=== PATIENT | male | born 1950 | race Caucasian/White ===

== ENCOUNTER 2016-11-27 15:56 | Inpatient (IN) | payer MEDICARE ==
[2016-11-27] VITALS (7 sets, daily range): BP systolic 167–170; BP diastolic 76–77; PULSE 66–95; RESP 17–25; TEMP 98.4; O2SAT 97–100
[~2016-11-27] VITALS: Ht 177.8 cm; Wt 92.0 kg
[2016-11-27] MEDS ORDERED: PROPOFOL 500 MG/50 ML INJ 50 ML ONE (16:01)
[2016-11-27] MEDS ORDERED: LIDOCAINE 1%/EPINEPHrine 1:100,000 SOLN 20 ML VIAL ONE (16:06)
[2016-11-27 16:31] LABS: I-STAT POTASSIUM 7.2 MMOL/L (3.5-4.9)
[2016-11-27] MEDS ORDERED: IOHEXOL 350 MG/ML 10 ML VIAL (for RAD DIAG) IV ONE (16:31)
--- NOTE | 2016-11-27 16:34 | RADRPT ---
EXAM DATE/TIME: 11/27/2016 15:52 [facility] COMPARISON: CHEST SINGLE AP, November 27, 2016, 15:52. INDICATIONS : Trauma Alert, Fall. MEDICAL HISTORY : None. SURGICAL HISTORY : None. ENCOUNTER: Initial ACUITY: 1 day PAIN SCORE: Non-responsive. LOCATION: Bilateral chest FINDINGS: Multiple displaced rib fractures are present on the left with a small pneumothorax. Subcutaneous emph ysema is seen. Mild left lung base atelectasis and/or infiltrate is seen. Heart and mediastinum are u nremarkable for technique. CONCLUSION: Small left pneumothorax and numerous displaced rib fractures. Jessa Mc MD on November 27, 2016 at 16:30 Board Certified Radiologist. This report was verified electronically.
--- NOTE | 2016-11-27 16:35 | RADRPT ---
EXAM DATE/TIME: 11/27/2016 15:52 [facility] COMPARISON: CHEST SINGLE AP, November 27, 2016, 15:52. INDICATIONS : Trauma Alert, Post chest tube placement. MEDICAL HISTORY : None. SURGICAL HISTORY : None. ENCOUNTER: Subsequent ACUITY: 1 day PAIN SCORE: Non-responsive. LOCATION: Bilateral chest FINDINGS: Chest tube is present on the left side. No definite pneumothorax is seen for technique. There is no c hange in multiple rib fractures and subcutaous emphysema on the left. Mild left lung base atelectasis and/or infiltrate is seen. CONCLUSION: Placement of chest tube and no pneumothorax. Jessa Mc MD on November 27, 2016 at 16:33 Board Certified Radiologist. This report was verified electronically.
--- NOTE | 2016-11-27 16:35 | RADRPT ---
EXAM DATE/TIME: 11/27/2016 15:52 [facility] COMPARISON: No previous studies available for comparison. INDICATIONS : Trauma Alert, Fall. MEDICAL HISTORY : None. SURGICAL HISTORY : None. ENCOUNTER: Initial ACUITY: 1 day PAIN SCORE: Non-responsive. LOCATION: Bilateral Pelvis FINDINGS: No definite fractures, or dislocations are identified. No definite lytic or sclerotic lesion is seen . CONCLUSION: Unremarkable study. Jessa Mc MD on November 27, 2016 at 16:32 Board Certified Radiologist. This report was verified electronically.
[2016-11-27 16:41] LABS: APTT (PATIENT) 22.5 SEC (24.3-30.1); PROTHROMBIN TIME - PATIENT 10.9 SEC (9.8-11.6)
--- NOTE | 2016-11-27 16:49 | RADRPT ---
EXAM DATE/TIME: 11/27/2016 16:24 [facility] COMPARISON: No previous studies available for comparison. INDICATIONS : Trauma. Fall. RADIATION DOSE: 58.01 CTDIvol (mGy) MEDICAL HISTORY : Non-responsive. SURGICAL HISTORY : Non-responsive. ENCOUNTER: Initial ACUITY: 1 day PAIN SCALE: Non-responsive LOCATION: cranial TECHNIQUE: Multiple contiguous axial images were obtained of the head. Using automated exposure control and adj ustment of the mA and/or kV according to patient size, radiation dose was kept as low as reasonably a chievable to obtain optimal diagnostic quality images. FINDINGS: There is no evidence for intracranial hemorrhage, mass effect, mass lesions, edema, or extra-axial fl uid collections. The visualized bony structures appear intact. The ventricles are normal size for t he patient's age. There are no signs of acute infarction for technique. CONCLUSION: Unremarkable study. Jessa Mc MD on November 27, 2016 at 16:46 Board Certified Radiologist. This report was verified electronically.
--- NOTE | 2016-11-27 16:54 | RADRPT ---
EXAM DATE/TIME: 11/27/2016 16:31 [facility] COMPARISON: No previous studies available for comparison. INDICATIONS : Trauma. Fall. IV CONTRAST: 95 cc Omnipaque 350 (iohexol) IV ; Cumulative dose for multiple exams. ORAL CONTRAST: No oral contrast ingested. RADIATION DOSE: 19.83 CTDIvol (mGy) ; Combined studies - Thorax/Abdomen/Pelvis MEDICAL HISTORY : Non-responsive. SURGICAL HISTORY : Non-responsive. ENCOUNTER: Initial ACUITY: 1 day PAIN SCALE: Non-responsive LOCATION: abdomen TECHNIQUE: Volumetric scanning of the abdomen and pelvis was performed. Using automated exposure control and ad justment of the mA and/or kV according to patient size, radiation dose was kept as low as reasonably achievable to obtain optimal diagnostic quality images. FINDINGS: CT Abdomen: There are findings in the visualized lower chest discussed on the patient's chest CT.The liver, spleen, pancreas, kidneys, adrenals are unremarkable. There is no evidence for any appreciable pathological adenopathy, free fluid, or bowel obstruction. Chronic vascular calcifications are pres ent involving the aorta, iliac arteries without any significant stenosis or aneurysmal dilatations fo r technique. CT pelvis: There is no evidence for mass, abscess formation, or any significant adenopathy within the pelvis. The prostate gland is inhomogeneous and measures 4.0 x 5.0 cm in AP and transverse diameters and nonspecific. Approximate 1.5 cm bone and is present in the left iliac bone with a smaller one in the right sacrum. There are scattered diverticuli mainly in the sigmoid colon without definite signs of diverticulitis. CONCLUSION: Scattered diverticuli and findings in the lower chest otherwise unremarkable. Jessa Mc MD on November 27, 2016 at 16:48 Board Certified Radiologist. This report was verified electronically.
[2016-11-27 16:57] LABS: AUTOMATED NEUTROPHIL # 6.8 TH/MM3 (1.8-7.7); BASOPHIL % 0.4 % (0.0-2.0); EOSINOPHIL # 0.2 TH/MM3 (0-0.4); EOSINOPHIL % 2.3 % (0.0-4.0); HEMATOCRIT 39.5 % (39.0-51.0); HEMO FLAGS DIFF FINAL; LYMPH % 25.1 % (9.0-44.0); LYMPHOCYTE # 2.6 TH/MM3 (1.0-4.8); MEAN CORPUSCULAR HEMOGLOBIN 30.8 PG (27.0-34.0); MEAN CORPUSCULAR HGB CONC 33.1 % (32.0-36.0); MONO % 5.6 % (0.0-8.0); NEUT % 66.6 % (16.0-70.0); PLATELET COUNT 289 TH/MM3 (150-450); RED BLOOD COUNT 4.25 MIL/MM3 (4.50-5.90); RED CELL DISTRIBUTION WIDTH 13.6 % (11.6-17.2); WHITE BLOOD COUNT 10.2 TH/MM3 (4.0-11.0)
--- NOTE | 2016-11-27 17:07 | PD ---
HPI Chief Complaint: Trauma (Alert) Time Seen by Provider: 16:00 Travel History International Travel<30 days: No Contact w/Intl Traveler<30days: No History of Present Illness HPI 61-year-old male here as a trauma alert. Patient reportedly fell down a staircase. Questionable LOC. EMS noticed decreased breath sounds on the left side prompting trauma alert activation. Vital signs including O2 sat stable in route. Patient points of only pain to the left side of the chest. He denies any significant headache, neck back pain, abdominal pain or extremity injury. Left-sided neck pain as severe, worse with movement or inspiration. [facility] Past Medical History Medical History: Unable to Obtain Past Surgical History Surgical History: Unable to Obtain Allergies-Medications (Allergen,Severity, Reaction): Coded Allergies: Keflex (Verified Allergy, Unknown, 11/27/16) Penicillin (Verified Allergy, Unknown, 11/27/16) Review of Systems ROS Limitations: Clinical Condition Except as stated in HPI: all other systems reviewed are Neg Physical Exam Exam Limitations: Clinical Condition Narrative PRIMARY SURVEY Airway: Intact Breathing: Bilateral breath sounds are equal Circulation: Blood pressure stable. Distal pulses intact Disability: GCS 15 Exposure: No obvious injuries SECONDARY SURVEY General: Well-appearing male in no acute distress Head: Atraumatic Eyes: Pupils equal round and reactive to light 3 mm ENT: Face is stable to palpation, no hemotympanum Neck: In cervical collar Cardiovascular: Regular rate and rhythm. Distal pulses intact. Respiratory: Clear to auscultation bilaterally. Chest: Crepitus and subcutaneous emphysema to the left side of the chest wall Abdomen: Soft, nontender, nondistended. Pelvis: Pelvis is stable to AP and lateral compression Back: No tenderness to palpation of the midline spine. No step-offs or crepitus. Extremities: No obvious deformity of the extremities. Distal sensation, pulses intact. Genitourinary: Normal external genitalia. No blood at the urethral meatus. Data Data Last Documented VS Vital Signs Date Time Temp Pulse Resp B/P Pulse Ox O2 Delivery O2 Flow Rate FiO2 11/27/16 16:13 97 15.00 100 Orders Ed Poc Ultrasound (11/27/16 ) Propofol 500 Mg/50 Ml Inj (Diprivan 500 (11/27/16 16:01) Lidocai-Epi 1%-1:100,000 Inj (Xylocaine- (11/27/16 16:06) Fentanyl Inj (Fentanyl Inj) (11/27/16 16:11) I-Stat Profile (11/27/16 16:10) I-Stat Creatinine (11/27/16 16:10) Complete Blood Count With Diff (11/27/16 16:10) Prothrombin Time / Inr (Pt) (11/27/16 16:10) Act Partial Throm Time (Ptt) (11/27/16 16:10) Type And Screen (11/27/16 16:10) Chest, Single Ap (11/27/16 16:10) Pelvis, Ap Only (Routine) (11/27/16 16:10) Ct Brain W/O Iv Contrast(Rout) (11/27/16 16:10) Ct Cerv Spine W/O Contrast (11/27/16 16:10) Ct Abd/Pel W Iv Contrast(Rout) (11/27/16 16:10) Ct Thorax/ Chest W Iv Contrast (11/27/16 16:10) Iv Access Insert/Monitor (11/27/16 16:10) Ecg Monitoring (11/27/16 16:10) Oximetry (11/27/16 16:10) Oxygen Administration (11/27/16 16:10) Remove Backboard (11/27/16 16:10) Chest, Single Ap (11/27/16 ) Admit Order (Ed Use Only) (11/27/16 16:19) Labs Laboratory Tests Test 11/27/16 16:13 White Blood Count 10.2 TH/MM3 Red Blood Count 4.25 MIL/MM3 Hemoglobin 13.1 GM/DL Bedside Hemoglobin 13.3 G/DL Hematocrit 39.5 % Bedside Hematocrit 39.0 % Mean Corpuscular Volume 93.0 FL Mean Corpuscular Hemoglobin 30.8 PG Mean Corpuscular Hemoglobin 33.1 % Concent Red Cell Distribution Width 13.6 % Platelet Count 289 TH/MM3 Mean Platelet Volume 11.2 FL Neutrophils (%) (Auto) 66.6 % Lymphocytes (%) (Auto) 25.1 % Monocytes (%) (Auto) 5.6 % Eosinophils (%) (Auto) 2.3 % Basophils (%) (Auto) 0.4 % Neutrophils # (Auto) 6.8 TH/MM3 Lymphocytes # (Auto) 2.6 TH/MM3 Monocytes # (Auto) 0.6 TH/MM3 Eosinophils # (Auto) 0.2 TH/MM3 Basophils # (Auto) 0.0 TH/MM3 CBC Comment DIFF FINAL Differential Comment Prothrombin Time 10.9 SEC Prothromb Time International 1.0 RATIO Ratio Activated Partial 22.5 SEC Thromboplast Time Bedside Sodium 139 MMOL/L Bedside Potassium 7.2 MMOL/L Bedside Chloride 108 MMOL/L Bedside Blood Urea Nitrogen 59 MG/DL Bedside Creatinine 1.3 MG/DL Bedside Glucose 174 MG/DL Blood Type A POSITIVE Antibody Screen NEGATIVE MDM Medical Screen Exam Complete: Yes Emergency Medical Condition: Yes Medical Record Reviewed: Yes Differential Diagnosis 61-year-old male status post fall from staircase with left-sided chest pain and subcutaneous emphysema on exam. Differential includes closed head injury, skull fracture, ICH, cervical/thoracic/lumbar spine fracture, hemothorax, pneumothorax, rib fracture, solid or visceral organ injury. Narrative Course By myself upon emergency department arrival. Primary survey notable for subcutaneous emphysema and crepitus on the left chest. X-rays of the chest, pelvis and fast ultrasound were performed confirming left-sided pneumothorax with subcutaneous emphysema. Procedural sedation performed and chest tube placed, please see procedure notes. Secondary survey unremarkable. Patient expedited to CT. Laboratory workup notable for potassium 7.2 that I think is likely erroneous. We'll recheck this. Head CT is negative. Chest CT showed left-sided clavicle, multiple rib fractures and either infiltrates or early pulmonary contusions. CT of the cervical spine remains pending at the time this dictation. Patient admitted to trauma surgery for further management. Critical Care Narrative Aggregate critical care time was 35 minutes. Time to perform other separately billable procedures was not included in the critical care time. My time did not include minutes spent treating any other patients simultaneously or on activities that did not directly contribute to the patient's treatment. The services I provided to this patient were to treat and/or prevent clinically significant deterioration that could result in: Cardiopulmonary decompensation, , disability I provided critical care services requiring my management, as noted below: Chart data review, documentation time, medication orders and management, vital sign assessments/reviewing monitor data, ordering and reviewing lab tests, ordering and interpreting/reviewing x-rays and diagnostic studies, care of the patient and discussion of the patient with the admitting physicians. Procedures Procedure Narrative After the risks and benefits were discussed the following procedure was performed: MODERATE SEDATION: The patient was placed on a site monitor and pulse oximetry. An ambu bag and suction was immediately available at bedside. The patient was monitored by the nurse. Oxygen saturation, heart rate, capnography and blood pressure were monitored. Procedural sedation was acheived using 100 g fentanyl, 100 mg propofol. The patient was observed until awake and alert. Procedural Sedation time in attendance was 25 minutes. Emergency department E-FAST was performed with patient consent. The curvilinear probe was used in the right upper quadrant/Morison's pouch, suprapubic, left upper quadrant/spleenorenal space, epigastric, parasternal long axis and anterior bilateral chest wall. There was no evidence of peritoneal free fluid, pericardial effusion. No sliding lung sign on the left consistent with pneumothorax. Right side is normal. Trauma Alert - Level One Trauma Alert Level One: Full trauma team activate Time Surgeon Summoned: 15:29 (Surgeon asked to come in) Diagnosis Diagnosis: Primary Impression: Pneumothorax, left Additional Impressions: Closed left clavicular fracture Rib fractures Qualified Code: S22.42XA - Closed fracture of multiple ribs of left side, initial encounter Fall Qualified Code: W19.XXXA - Fall, initial encounter Admitting Physician Requests: Admit Varsha Hicks MD Nov 27, 2016 17:07
--- NOTE | 2016-11-27 17:09 | RADRPT ---
EXAM DATE/TIME: 11/27/2016 16:31 [facility] COMPARISON: No previous studies available for comparison. INDICATIONS : Trauma. Fall. IV CONTRAST: 95 cc Omnipaque 350 (iohexol) IV ; Cumulative dose for multiple exams. RADIATION DOSE: 19.83 CTDIvol (mGy) MEDICAL HISTORY : Non-responsive. SURGICAL HISTORY : Non-responsive. ENCOUNTER: Initial ACUITY: 1 day PAIN SCALE: Non-responsive LOCATION: chest TECHNIQUE: Volumetric scanning of the chest was performed. Using automated exposure control and adjustment of t he mA and/or kV according to patient size, radiation dose was kept as low as reasonably achievable to obtain optimal diagnostic quality images. FINDINGS: There is a displaced left clavicular fracture and numerous displaced rib fractures. Subcutaous e mphysema is seen on the left to a significant degree with a small pneumothorax. Chest tube is present on the left side. Bibasilar infiltrates and or contusion is seen worse on the left. The mediastinum appears intact. CONCLUSION: Left pneumothorax and multiple fractures and bibasilar contusions and/or infiltrates. Jessa Mc MD on November 27, 2016 at 17:03 Board Certified Radiologist. This report was verified electronically.
--- NOTE | 2016-11-27 17:14 | RADRPT ---
EXAM DATE/TIME: 11/27/2016 16:24 [facility] COMPARISON: No previous studies available for comparison. INDICATIONS : Trauma. Fall. RADIATION DOSE: 21.52 CTDIvol (mGy) MEDICAL HISTORY : Non-responsive. SURGICAL HISTORY : Non-responsive. ENCOUNTER: Initial ACUITY: 1 day PAIN SCALE: Non-responsive LOCATION: neck TECHNIQUE: Volumetric scanning of the cervical spine was performed. Multiplanar reconstructions in the sagittal, coronal and oblique axial planes were performed. Using automated exposure control and adjustment o f the mA and/or kV according to patient size, radiation dose was kept as low as reasonably achievable to obtain optimal diagnostic quality images. FINDINGS: No evidence of subluxation. Extensive subcutaneous emphysema is seen. No definite fracture of ce rvical spine is seen for technique. C2-C3: There is no evidence for any significant compromise to the thecal sac, or the exiting nerve roots. N o appreciable thecal sac stenosis is seen. The neural foramina and lateral recess appear patent bila terally. C3-C4: Slight degenerative changes are seen within the disc space and facets. There is slight neural foramin a compromise on the right due to asymmetrical bulging disc and hypertrophic changes. Slight bulging d isc and hypertrophic changes are seen with indentation on the thecal sac and no significant compromis e to the thecal sac. C4-C5: There is no evidence for any significant compromise to the thecal sac, or the exiting nerve roots. N o appreciable thecal sac stenosis is seen. The neural foramina and lateral recess appear patent bila terally. C5-C6: Moderate degenerative changes are seen within the disc space and facets. There is bulging disc and hy pertrophic change protruding into bilateral lateral recess without any significant compromise to the exiting nerve roots. There is slight neural foramina compromise on the right due to asymmetrical bulg ing disc and hypertrophic changes. Slight bulging disc and hypertrophic changes are seen with indenta tion on the thecal sac and no significant compromise to the thecal sac. C6-C7: Moderate degenerative changes are seen within the disc space and facets. There is bulging disc and hy pertrophic change protruding into bilateral lateral recess without any significant compromise to the exiting nerve roots. There is slight neural foramina compromise on the right due to asymmetrical bulg ing disc and hypertrophic changes. Slight bulging disc and hypertrophic changes are seen with indenta tion on the thecal sac and no significant compromise to the thecal sac. C7-T1: There is no evidence for any significant compromise to the thecal sac, or the exiting nerve roots. N o appreciable thecal sac stenosis is seen. The neural foramina and lateral recess appear patent bila terally. CONCLUSION: Subcutaneous emphysema, degenerative spondylosis with slight neural foramina compromise right C3-C4, right C5-6 and right C6-7. Jessa Mc MD on November 27, 2016 at 17:07 Board Certified Radiologist. This report was verified electronically.
[2016-11-27] MEDS ORDERED: SODIUM CHLORIDE 0.9% FLUSH 10 ML FLUSH IV FLUSH PRN (17:15)
[2016-11-27] MEDS ORDERED: CHLORHEXIDINE GLUCONATE 2 % 1 PACK (2 CLOTHS) TOP PRN (17:15)
[2016-11-27] MEDS ORDERED: PCA - TOTAL MG MORPHINE DELIVERED PER SHIFT SCH (17:15)
[2016-11-27] MEDS ORDERED: ACETAMINOPHEN/HYDROcodone 325 MG/5 MG TAB PO PRN (17:15)
[2016-11-27] MEDS ORDERED: NALOXONE HCL 0.4 MG/ML AMP IV PRN ×2 (17:15→18:15)
[2016-11-27] MEDS ORDERED: ONDANSETRON HCL 4 MG/2 ML VIAL IV PRN (17:15)
[2016-11-27] MEDS ORDERED: MISCELLANEOUS NURSING INFORMATION XX SCH (17:15)
[2016-11-27] MEDS ORDERED: MORPHINE SULFATE 30 MG/30 ML PCA IV SCH (17:15)
--- NOTE | 2016-11-27 17:59 | HHI.CCPN ---
Subjective Brief History 61-year-old male fell a flight of stairs and sustained injuries to the left chest Patient is transferred to our institution as per 21 trauma alert and comes complaining about pain in the left chest and left shoulder as well as shortness of breath Patient was worked up according to trauma principles underwent the appropriate studies and is diagnosed with Left clavicle fracture with moderate displacement Left serial rib fractures I'm counting III to IX Hemopneumothorax and pulmonary contusion Patient is placed in the ICU for further care Past medical and surgical history is unknown Medications are unknown Allergies are not known 24 Hour Review/Hospital Course Physical examination reveals a gentleman mother distressed of the left chest pain Bilateral breath sounds much improved since the arrival patient has crepitus over the left chest consistent with the subcutaneous emphysema resulting from the initial hemopneumothorax Minimal drainage from the chest tube after about 200 cc of blood came out initially Very small air leak on Valsalva and deep inspiration Patient will be placed in the ICU for observation and further acute care Objective Vital Signs Date Time Temp Pulse Resp B/P Pulse Ox O2 Delivery O2 Flow Rate FiO2 11/27/16 17:45 93 17 167/76 98 Nasal Cannula 2 11/27/16 16:13 100 Result Diagram: 11/27/16 1613 Imaging Last 24 hours Impressions Pelvis X-Ray 11/27/161609 Signed Impressions: Service Date/Time: Sunday, November 27, 2016 15:52 - CONCLUSION: Unremarkable study. Jessa Mc MD Head CT 11/27/161609 Signed Impressions: Service Date/Time: Sunday, November 27, 2016 16:24 - CONCLUSION: Unremarkable study. Jessa Mc MD Chest X-Ray 11/27/161609 Signed Impressions: Service Date/Time: Sunday, November 27, 2016 15:52 - CONCLUSION: Small left pneumothorax and numerous displaced rib fractures. Jessa Mc MD Chest CT 11/27/161609 Signed Impressions: Service Date/Time: Sunday, November 27, 2016 16:31 - CONCLUSION: Left pneumothorax and multiple fractures and bibasilar contusions and/or infiltrates. Jessa Mc MD Cervical Spine CT 11/27/161609 Signed Impressions: Service Date/Time: Sunday, November 27, 2016 16:24 - CONCLUSION: Subcutaneous emphysema, degenerative spondylosis with slight neural foramina compromise right C3-C4, right C5-6 and right C6-7. Jessa Mc MD Abdomen/Pelvis CT 11/27/16 1610 Signed Impressions: Service Date/Time: Sunday, November 27, 2016 16:31 - CONCLUSION: Scattered diverticuli and findings in the lower chest otherwise unremarkable. Jessa Mc MD Chest X-Ray 11/27/16 0000 Signed Impressions: Service Date/Time: Sunday, November 27, 2016 15:52 - CONCLUSION: Placement of chest tube and no pneumothorax. Jessa Mc MD Exam [employer] Awake alert oriented Jose Antonio Coma Scale 15 Hemodynamic/Cardiac Hemodynamically stable sinus rhythm maintain his blood pressure Pulmonary/Respiratory Bilateral good breath sounds decreased over the left side with some splinting chest tube in position Abdomen/GI Nutrition Abdomen soft no signs of trauma to the abdomen Renal/I&O Good urine output Assessment and Plan Attestation The exam, history, and the medical decision-making described in the above note were completed with the assistance of the mid-level provider. I reviewed and agree with the findings presented. I attest that I had a [id number] encounter with the patient on the same day, and personally performed and documented my assessment and findings in the medical record. Critical care time 42 minutes. Lindsey Victor MD Nov 27, 2016 17:59
[2016-11-27] MEDS ORDERED: PANTOPRAZOLE SODIUM 40 MG VIAL IVP SCH (18:00)
[2016-11-27] MEDS: MORPHINE SULFATE 4 MG/ML INJ IV PRN (19:36)
[2016-11-27] MEDS: SODIUM CHLOR 0.9% 1000 ML INJ 1,000 ML IV SCH (20:11)
[2016-11-27] MEDS: MORPHINE SULFATE 30 MG/30 ML PCA IV SCH (20:43)
[2016-11-27] MEDS ORDERED: DOCUSATE SODIUM 100 MG CAP PO SCH (21:00)
[2016-11-27] MEDS ORDERED: DOCUSATE SODIUM 100 MG/10 ML UDC PO SCH (21:00)
[2016-11-27] MEDS: BACITRACIN TOP OINT 15 GM TUBE TOP SCH (21:00)
[2016-11-27] MEDS: ACETAMINOPHEN/HYDROcodone 325 MG/5 MG TAB PO PRN (21:26)
[2016-11-27] MEDS: PCA - TOTAL MG MORPHINE DELIVERED PER SHIFT SCH (22:00)
--- NOTE | 2016-11-27 22:38 | MH ---
cc: MADELEINE GARCIA MD DATE OF ADMISSION 11/27/2016 CHIEF COMPLAINT Trauma alert, status post fall. HISTORY OF PRESENT ILLNESS The patient is a 66-year-old male who presented as a trauma alert status post fall from 8-10 feet. The patient had questionable loss of consciousness noticed to have decreased breath sounds by Emergency Medical Service prompting a trauma alert activation. The patient was hemodynamically stable en route and came to the trauma bay with a GCS of 15, complaining of left-sided chest pain and noted to have crepitus and some headache and back pain. The patient was assessed with decreased breath sounds on the left. Chest x-ray obtained showing significant subcutaneous air with multiple rib fractures and a pneumothorax. Therefore, decision was made for a chest tube. This was done by myself emergently at bedside under sedation. The patient was then taken to the CT scanner for further evaluation with findings of a left clavicle fracture and multiple five left rib fractures. He also had lung contusions. He was, therefore, transported to [facility] for ICU and ISC consultation and further management, pain control and treatment. PAST MEDICAL HISTORY Unable to obtain. PAST SURGICAL HISTORY Unable to obtain. ALLERGIES KEFLEX PENICILLIN MEDICATIONS See EMR. SOCIAL HISTORY Difficult to obtain. FAMILY HISTORY Unable to obtain. REVIEW OF SYSTEMS GENERAL: The patient in mild distress. HEENT: Denies eye pain. Complains of headache. NECK: Denies swelling or pain. LUNGS: Complained of left-sided pain. Denies cough or wheeze. HEART: Denies palpitations, chest pain. ABDOMEN: Denies abdominal pain. EXTREMITIES: Denies myalgias, arthralgias. : Denies dysuria, hematuria. ENDOCRINE: Denies polyuria, polydipsia. PHYSICAL EXAMINATION GENERAL: The patient in minimal distress. VITAL SIGNS: Temperature 98.1, pulse 95, respirations 18, blood pressure 167/76, saturation 99%. HEENT: Pupils equal, round, reactive to light and accommodation NECK: C-collar in place. Trachea midline. LUNGS: Decreased breath sounds on left, crepitus, bilateral expansion. HEART: S1-S2 regular. ABDOMEN: Soft, nontender, nondistended. EXTREMITIES: Moving all extremities except weakness on left upper extremity. CLAVICLES: Tenderness to palpation of left clavicle. SKIN: Minimal abrasions noted. PSYCHIATRIC: Good insight, good judgment. LABORATORY AND DIAGNOSTIC DATA WBC 10.2, hemoglobin 13.1, hematocrit 39.5, platelets 289. Sodium 139, potassium 7.2, chloride 108, BUN 59, creatinine 1.3, glucose 174, INR one. RADIOLOGY Reviewed by myself. CT head - no evidence of acute pathology. CT C-spine subcutaneous emphysema, degenerative disease. No acute fracture. CT abdomen and pelvis - scattered diverticula otherwise no free air. No hollow or solid organ injury. CT chest - Left pneumothorax, multiple rib fractures five in total. Infiltrates with basilar contusions. Chest x-ray - rib fractures, pneumothorax. Pelvic x-ray no fracture. ASSESSMENT The patient is a 58-year-old male status post fall from 8-10 feet, multiple left-sided rib fractures, pneumothorax status post chest tube placement. PLAN After full clinical radiologic laboratory workup, the patient with above-named issues including pulmonary contusion, multiple rib fractures. The patient will be admitted to the ICU. ISC consultation. We will watch and monitor the patient's respiratory status closely and give the patient adequate pain control, pulmonary toilet and muscle relaxer. The patient's chest tube will stay to negative 20 suction. We will check a chest x-ray in the morning. For clavicle fracture on the left, we will consult orthopedics for further management and evaluation and possible operative intervention. We will continue the patient IV fluids, n.p.o. pain control and again watch for ongoing evolution of other issues. This was discussed with the patient and family in detail. MD CHELSEY Riojas/ /9:38 PM /10:19 PM
[2016-11-28] VITALS (9 sets, daily range): BP systolic 108–144; BP diastolic 57–70; PULSE 58–66; RESP 16–22; TEMP 96.9–98.3; O2SAT 95–100
[2016-11-28] MEDS: CHLORHEXIDINE GLUCONATE 2 % 1 PACK (2 CLOTHS) TOP SCH (02:46)
[2016-11-28] MEDS: ACETAMINOPHEN/HYDROcodone 325 MG/5 MG TAB PO PRN (02:46)
[2016-11-28] MEDS: SODIUM CHLOR 0.9% 1000 ML INJ 1,000 ML IV SCH (02:47)
[2016-11-28 04:27] LABS: AUTOMATED NEUTROPHIL # 4.2 TH/MM3 (1.8-7.7); BASOPHIL % 0.3 % (0.0-2.0); EOSINOPHIL # 0.2 TH/MM3 (0-0.4); EOSINOPHIL % 2.8 % (0.0-4.0); HEMATOCRIT 37.8 % (39.0-51.0); HEMO FLAGS DIFF FINAL; LYMPH % 28.9 % (9.0-44.0); LYMPHOCYTE # 2.1 TH/MM3 (1.0-4.8); MEAN CELL VOLUME 94.5 FL (80.0-100.0); MEAN CORPUSCULAR HGB CONC 32.8 % (32.0-36.0); MONO % 11.7 % (0.0-8.0); NEUT % 56.3 % (16.0-70.0); PLATELET COUNT 176 TH/MM3 (150-450); RED CELL DISTRIBUTION WIDTH 13.7 % (11.6-17.2); WHITE BLOOD COUNT 7.4 TH/MM3 (4.0-11.0)
[2016-11-28 04:58] LABS: BICARBONATE 24.3 MEQ/L (21.0-32.0); POTASSIUM 4.3 MEQ/L (3.5-5.1)
[2016-11-28] MEDS: PCA - TOTAL MG MORPHINE DELIVERED PER SHIFT SCH ×3 (06:00→22:00)
--- NOTE | 2016-11-28 06:50 | RADRPT ---
EXAM DATE/TIME: 11/28/2016 04:42 [facility] COMPARISON: CHEST SINGLE AP, November 27, 2016, 15:52. INDICATIONS : Shortness of breath. MEDICAL HISTORY : Unobtainable. SURGICAL HISTORY : Unobtainable. ENCOUNTER: Subsequent ACUITY: 2 days PAIN SCORE: Non-responsive. LOCATION: Bilateral chest FINDINGS: A single portable frontal view of the chest shows a left thoracostomy tube. Multiple left-sided rib f ractures. No pneumothorax. Small amount of subcutaneous air overlying the left chest and left neck. L eft basilar atelectasis. Right lung is clear. Heart is normal in size. Scoliotic curvature. CONCLUSION: 1. Left thoracostomy tube without pneumothorax. 2. Left-sided rib fractures. 3. Left basilar atelectasis. Chandrakant Villa Jr., MD on November 28, 2016 at 6:48 Board Certified Radiologist. This report was verified electronically.
[2016-11-28] MEDS: MORPHINE SULFATE 30 MG/30 ML PCA IV SCH (07:44)
[2016-11-28] MEDS: METHOCARBAMOL 500 MG TAB PO SCH ×3 (07:55→23:01)
[2016-11-28] MEDS ORDERED: RESP: ALBUTEROL 2.5 MG/IPRATROPIUM 0.5 MG NEB (PRN) NEB (08:00)
[2016-11-28] MEDS: FAMOTIDINE 20 MG TAB PO SCH ×2 (08:16→23:01)
[2016-11-28] MEDS: DOCUSATE SODIUM 50 MG/SENNA 8.6 MG TAB PO SCH ×2 (08:17→23:01)
[2016-11-28] MEDS: POLYETHYLENE GLYCOL 17 GM PKG PO SCH (08:17)
[2016-11-28] MEDS: BACITRACIN TOP OINT 15 GM TUBE TOP SCH (08:18)
[2016-11-28] MEDS: KETOROLAC TROMETHAMINE 30 MG/ML (IVP) VIAL IV PUSH SCH ×3 (13:01→23:01)
[2016-11-28] MEDS: ACETAMINOPHEN 1000 MG/100 ML VIAL IV SCH ×2 (13:01→17:56)
--- NOTE | 2016-11-28 13:28 | PD.CONS ---
HPI Service Orthopedic Surgeons Consult Requested By Primary Care Physician Aristeo Low MD Admission Diagnosis L ptx, fall Diagnoses: Chief Complaint: full consult dictated Past Family Social History Allergies: Coded Allergies: Keflex (Verified Allergy, Unknown, 11/27/16) Penicillin (Verified Allergy, Unknown, 11/27/16) Active Ordered Medications Current Medications Medications (Trade) Dose Ordered Sig/Karis Route Start Time Stop Time Status Last Admin (NS Flush) 2 ml UNSCH PRN IV FLUSH 11/27/16 17:15 ([place] 5-325 Mg) 1 tab Q4H PRN PO 11/27/16 17:15 11/28/16 02:46 (Zofran Inj) 4 mg Q6H PRN IV 11/27/16 17:15 11/28/16 11:36 (Baciguent Oint) 1 applic BID TOP 11/27/16 21:00 Miscellaneous Information 1 Q361D XX 11/27/16 17:15 11/27/16 20:11 (Chlorhexidine 2% Cloth) 3 pack Taper DAILY@04 TOP 11/28/16 04:00 11/24/17 03:59 11/28/16 02:46 (Chlorhexidine 2% Cloth) 3 pack UNSCH PRN TOP 11/27/16 17:15 (Narcan Inj) 0.4 mg UNSCH PRN IV 11/27/16 18:15 (Morphine 1 Mg/ ml SPECTROGRAPHIC ANALYST) 30 mg UNSCH IV 11/27/16 18:15 11/28/16 07:44 SPECTROGRAPHIC ANALYST Dosage Infused (Pha) 1 Q8HR .XX 11/27/16 22:00 11/28/16 06:00 (Morphine Inj) 4 mg Q1H PRN IV 11/27/16 19:15 11/27/16 19:36 (Robaxin) 500 mg Q8HR PO 11/28/16 08:00 11/28/16 07:55 (Анна-Colace) 1 tab BID PO 11/28/16 09:00 11/28/16 08:17 (Miralax) 17 gm DAILY PO 11/28/16 09:00 11/28/16 08:17 (Pepcid) 20 mg BID PO 11/28/16 09:00 11/28/16 08:16 (Toradol Inj) 15 mg Q6HR IV PUSH 11/28/16 12:00 12/01/16 11:59 11/28/16 13:01 (Ofirmev Inj) 1,000 mg Q6H IV 11/28/16 13:00 11/29/16 12:59 11/28/16 13:01 Reported Meds & Active Scripts Active No Active Prescriptions or Reported Medications Physical Exam Vital Signs Vital Signs Date Time Temp Pulse Resp B/P Pulse Ox O2 Delivery O2 Flow Rate FiO2 11/28/16 11:51 99 Nasal Cannula 1.00 11/28/16 08:00 98.3 65 17 137/68 98 11/28/16 08:00 65 11/28/16 07:49 22 11/28/16 07:44 22 11/28/16 07:00 99 Nasal Cannula 2.00 11/28/16 06:00 20 11/28/16 06:00 60 11/28/16 06:00 20 11/28/16 04:00 98.3 58 20 133/66 100 11/28/16 04:00 58 11/28/16 00:00 64 11/28/16 00:00 98.2 64 20 144/70 100 11/27/16 22:00 66 11/27/16 22:00 22 11/27/16 21:00 25 11/27/16 20:47 100 Nasal Cannula 2.00 11/27/16 20:43 22 11/27/16 20:00 74 11/27/16 20:00 98.4 74 25 170/77 100 11/27/16 19:00 100 Nasal Cannula 2.00 11/27/16 17:45 93 17 167/76 98 Nasal Cannula 2 11/27/16 17:43 98 Nasal Cannula 2 11/27/16 17:40 95 18 167/76 98 11/27/16 16:13 97 15.00 100 Laboratory Laboratory Tests Test 11/27/16 11/27/16 11/27/16 11/28/16 16:13 17:10 18:46 03:31 White Blood Count 10.2 7.4 Red Blood Count 4.25 4.00 Hemoglobin 13.1 12.4 Bedside Hemoglobin 13.3 Hematocrit 39.5 37.8 Bedside Hematocrit 39.0 Mean Corpuscular Volume 93.0 94.5 Mean Corpuscular Hemoglobin 30.8 31.0 Mean Corpuscular Hemoglobin 33.1 32.8 Concent Red Cell Distribution Width 13.6 13.7 Platelet Count 289 176 Mean Platelet Volume 11.2 10.2 Neutrophils (%) (Auto) 66.6 56.3 Lymphocytes (%) (Auto) 25.1 28.9 Monocytes (%) (Auto) 5.6 11.7 Eosinophils (%) (Auto) 2.3 2.8 Basophils (%) (Auto) 0.4 0.3 Neutrophils # (Auto) 6.8 4.2 Lymphocytes # (Auto) 2.6 2.1 Monocytes # (Auto) 0.6 0.9 Eosinophils # (Auto) 0.2 0.2 Basophils # (Auto) 0.0 0.0 CBC Comment DIFF FINAL DIFF FINAL Differential Comment Prothrombin Time 10.9 Prothromb Time International 1.0 Ratio Activated Partial 22.5 Thromboplast Time Bedside Sodium 139 Bedside Potassium 7.2 Bedside Chloride 108 Bedside Blood Urea Nitrogen 59 Bedside Creatinine 1.3 Bedside Glucose 174 Blood Type A POSITIVE Antibody Screen NEGATIVE Potassium Level 4.2 4.3 Nasal Screen MRSA (PCR) MRSA NOT DETECTED Sodium Level 142 Chloride Level 111 Carbon Dioxide Level 24.3 Anion Gap 7 Blood Urea Nitrogen 25 Creatinine 1.03 Estimat Glomerular Filtration 62 Rate Random Glucose 111 Calcium Level 8.2 Result Diagram: 11/28/16 03311/28/16 033 Assessment & Plan Problem List: (1) Closed left clavicular fracture (2) Rib fractures Plan: Treatment of pneumothorax Conservative care for multiple rib fractures Conservative care for left clavicle fracture (If clavicle fracture displaces further, then consider ORIF) Monitor Leroy Luna MD Nov 28, 2016 13:28
--- NOTE | 2016-11-28 15:32 | HHI.CCPN ---
Subjective Brief History 61-year-old male fell a flight of stairs and sustained injuries to the left chest Patient is transferred to our institution as per 21 trauma alert and comes complaining about pain in the left chest and left shoulder as well as shortness of breath Patient was worked up according to trauma principles underwent the appropriate studies and is diagnosed with Left clavicle fracture with moderate displacement Left serial rib fractures I'm counting III to IX Hemopneumothorax and pulmonary contusion Patient is placed in the ICU for further care Past medical and surgical history is unknown Medications are unknown Allergies are not known 24 Hour Review/Hospital Course Physical examination reveals a gentleman mother distressed of the left chest pain Bilateral breath sounds much improved since the arrival patient has crepitus over the left chest consistent with the subcutaneous emphysema resulting from the initial hemopneumothorax Minimal drainage from the chest tube after about 200 cc of blood came out initially Very small air leak on Valsalva and deep inspiration Patient will be placed in the ICU for observation and further acute care 11/28/16 Patient status post fall this morning much more comfortable Chest tube drainage only but 100 cc over 24 hours and there is no more chest tube leak Patient is taking fairly good breaths and is comfortable with SALES REP pump Will transfer patient to floor this time Objective Vital Signs Date Time Temp Pulse Resp B/P Pulse Ox O2 Delivery O2 Flow Rate FiO2 11/28/16 14:00 22 11/28/16 12:00 97.6 62 136/68 95 11/28/16 11:51 Nasal Cannula 1.00 11/27/16 16:13 100 Intake and Output 11/27/16 11/27/16 11/28/16 08:00 16:00 00:00 Intake Total 320 ml Output Total 405 ml Balance -85 ml Result Diagram: 11/28/16 0331 11/28/16 0331 Imaging Last 24 hours Impressions Chest X-Ray 11/28/16 0000 Signed Impressions: Service Date/Time: Monday, November 28, 2016 04:42 - CONCLUSION: 1. Left thoracostomy tube without pneumothorax. 2. Left-sided rib fractures. 3. Left basilar atelectasis. Chandrakant Villa Jr., MD Pelvis X-Ray 11/27/16 1610 Signed Impressions: Service Date/Time: Sunday, November 27, 2016 15:52 - CONCLUSION: Unremarkable study. Jessa Mc MD Head CT 4/21/17 1610 Signed Impressions: Service Date/Time: Sunday, November 27, 2016 16:24 - CONCLUSION: Unremarkable study. Jessa Mc MD Chest X-Ray 11/27/161609 Signed Impressions: Service Date/Time: Sunday, November 27, 2016 15:52 - CONCLUSION: Small left pneumothorax and numerous displaced rib fractures. Jessa Mc MD Chest CT 11/27/161609 Signed Impressions: Service Date/Time: Sunday, November 27, 2016 16:31 - CONCLUSION: Left pneumothorax and multiple fractures and bibasilar contusions and/or infiltrates. Jessa Mc MD Cervical Spine CT 11/27/161609 Signed Impressions: Service Date/Time: Sunday, November 27, 2016 16:24 - CONCLUSION: Subcutaneous emphysema, degenerative spondylosis with slight neural foramina compromise right C3-C4, right C5-6 and right C6-7. Jessa Mc MD Abdomen/Pelvis CT 11/27/161609 Signed Impressions: Service Date/Time: Sunday, November 27, 2016 16:31 - CONCLUSION: Scattered diverticuli and findings in the lower chest otherwise unremarkable. Jessa Mc MD Exam [id number] Normocephalic Hemodynamic/Cardiac Hemodynamically intact Pulmonary/Respiratory Bilateral breath sounds slight splinting on the left side and drainage from the left chest about 100 cc over 24 hours Abdomen/GI Nutrition Abdomen soft active bowel sounds were advanced to regular diet Assessment and Plan Attestation The exam, history, and the medical decision-making described in the above note were completed with the assistance of the mid-level provider. I reviewed and agree with the findings presented. I attest that I had a [id number] encounter with the patient on the same day, and personally performed and documented my assessment and findings in the medical record. Critical care time 38 minutes. Lindsey Victor MD Nov 28, 2016 15:32
[2016-11-29 00:20] VITALS: BP 135/65; PULSE 70; RESP 16; TEMP 97; O2SAT 97
[2016-11-29] MEDS: ACETAMINOPHEN 1000 MG/100 ML VIAL IV SCH ×2 (01:52→06:46)
[2016-11-29 03:45] VITALS: BP 133/58; PULSE 73; RESP 16; TEMP 97; O2SAT 96
[2016-11-29] MEDS: CHLORHEXIDINE GLUCONATE 2 % 1 PACK (2 CLOTHS) TOP SCH (04:00)
[2016-11-29 05:55] LABS: AUTOMATED NEUTROPHIL # 3.5 TH/MM3 (1.8-7.7); BASOPHIL % 0.5 % (0.0-2.0); EOSINOPHIL # 0.4 TH/MM3 (0-0.4); HEMATOCRIT 36.1 % (39.0-51.0); HEMO FLAGS DIFF FINAL; LYMPH % 29.5 % (9.0-44.0); MEAN CELL VOLUME 93.5 FL (80.0-100.0); MEAN CORPUSCULAR HEMOGLOBIN 31.3 PG (27.0-34.0); MEAN CORPUSCULAR HGB CONC 33.4 % (32.0-36.0); MONO % 10.6 % (0.0-8.0); NEUT % 53.4 % (16.0-70.0); PLATELET COUNT 198 TH/MM3 (150-450); RED BLOOD COUNT 3.86 MIL/MM3 (4.50-5.90); RED CELL DISTRIBUTION WIDTH 13.3 % (11.6-17.2); WHITE BLOOD COUNT 6.6 TH/MM3 (4.0-11.0)
[2016-11-29] MEDS: METHOCARBAMOL 500 MG TAB PO SCH ×3 (06:00→20:46)
[2016-11-29] MEDS: PCA - TOTAL MG MORPHINE DELIVERED PER SHIFT SCH ×3 (06:00→20:45)
[2016-11-29 06:18] LABS: ALT (GPT) 31 U/L (12-78); ANION GAP 4 MEQ/L (5-15); AST (GOT) 39 U/L (15-37); BICARBONATE 26.8 MEQ/L (21.0-32.0); BLOOD UREA NITROGEN 18 MG/DL (7-18); CHLORIDE 109 MEQ/L (98-107); GLOMERULAR FILTRATION RATE 73 ML/MIN (>89); POTASSIUM 4.1 MEQ/L (3.5-5.1); SODIUM (NA) 140 MEQ/L (136-145)
[2016-11-29 06:20] LABS: ALKALINE PHOSPHATASE 36 U/L (45-117); TOTAL BILIRUBIN ADULT 0.3 MG/DL (0.2-1.0)
--- NOTE | 2016-11-29 06:43 | RADRPT ---
EXAM DATE/TIME: 11/29/2016 05:59 [facility] COMPARISON: CHEST SINGLE AP, November 28, 2016, 4:42. INDICATIONS : Shortness of breath, possible pulmonary disease. MEDICAL HISTORY : None. SURGICAL HISTORY : None. ENCOUNTER: Subsequent ACUITY: 3 days PAIN SCORE: Non-responsive. LOCATION: Bilateral chest FINDINGS: A single portable frontal view of the chest shows a left thoracostomy tube without pneumothorax. Subc utaneous air overlies the left chest and neck. Minimal left basilar atelectasis. Right lung is clear. Heart is normal in size. Left-sided rib fractures. CONCLUSION: No pneumothorax. Left basilar atelectasis. Chandrakant Villa Jr., MD on November 29, 2016 at 6:41 Board Certified Radiologist. This report was verified electronically.
[2016-11-29] MEDS: KETOROLAC TROMETHAMINE 30 MG/ML (IVP) VIAL IV PUSH SCH ×3 (06:46→17:52)
[2016-11-29 08:00] VITALS: BP 141/70; PULSE 69; RESP 18; TEMP 96.8; O2SAT 98
[2016-11-29] MEDS: DOCUSATE SODIUM 50 MG/SENNA 8.6 MG TAB PO SCH ×2 (08:21→20:44)
[2016-11-29] MEDS: POLYETHYLENE GLYCOL 17 GM PKG PO SCH (08:21)
[2016-11-29] MEDS: FAMOTIDINE 20 MG TAB PO SCH ×2 (08:21→20:44)
[2016-11-29] MEDS: BACITRACIN TOP OINT 15 GM TUBE TOP SCH (09:00)
[2016-11-29] MEDS: MORPHINE SULFATE 30 MG/30 ML PCA IV SCH (10:38)
[2016-11-29 12:00] VITALS: BP 121/65; PULSE 70; RESP 18; TEMP 97.5; O2SAT 98
--- NOTE | 2016-11-29 12:32 | HHI.PR ---
Subjective Subjective Notes Pain better controlled today. Incentive Spirometry Inspire Volume = 2500mL Objective Vitals/I&O Vital Signs Date Time Temp Pulse Resp B/P Pulse Ox O2 Delivery O2 Flow Rate FiO2 11/29/16 10:38 18 11/29/16 08:00 96.8 69 141/70 98 11/28/16 11:51 Nasal Cannula 1.00 11/27/16 16:13 100 Labs Laboratory Tests Test 11/29/16 05:05 White Blood Count 6.6 Red Blood Count 3.86 Hemoglobin 12.1 Hematocrit 36.1 Mean Corpuscular Volume 93.5 Mean Corpuscular Hemoglobin 31.3 Mean Corpuscular Hemoglobin 33.4 Concent Red Cell Distribution Width 13.3 Platelet Count 198 Mean Platelet Volume 9.7 Neutrophils (%) (Auto) 53.4 Lymphocytes (%) (Auto) 29.5 Monocytes (%) (Auto) 10.6 Eosinophils (%) (Auto) 6.0 Basophils (%) (Auto) 0.5 Neutrophils # (Auto) 3.5 Lymphocytes # (Auto) 2.0 Monocytes # (Auto) 0.7 Eosinophils # (Auto) 0.4 Basophils # (Auto) 0.0 CBC Comment DIFF FINAL Differential Comment Sodium Level 140 Potassium Level 4.1 Chloride Level 109 Carbon Dioxide Level 26.8 Anion Gap 4 Blood Urea Nitrogen 18 Creatinine 1.02 Estimat Glomerular Filtration 73 Rate Random Glucose 93 Calcium Level 8.6 Total Bilirubin 0.3 Aspartate Amino Transf 39 (AST/SGOT) Alanine Aminotransferase 31 (ALT/SGPT) Alkaline Phosphatase 36 Total Protein 5.7 Albumin 3.1 Radiology Last Impressions Chest X-Ray 11/29/16 0600 Signed Impressions: Service Date/Time: Tuesday, November 29, 2016 05:59 - CONCLUSION: No pneumothorax. Left basilar atelectasis. Chandrakant Villa Jr., MD Pelvis X-Ray 11/27/16 1610 Signed Impressions: Service Date/Time: Sunday, November 27, 2016 15:52 - CONCLUSION: Unremarkable study. Jessa Mc MD Head CT 11/27/16 1610 Signed Impressions: Service Date/Time: Sunday, November 27, 2016 16:24 - CONCLUSION: Unremarkable study. Jessa Mc MD Chest CT 11/27/16 161 Signed Impressions: Service Date/Time: Sunday, November 27, 2016 16:31 - CONCLUSION: Left pneumothorax and multiple fractures and bibasilar contusions and/or infiltrates. Jessa Mc MD Cervical Spine CT 11/27/16 1610 Signed Impressions: Service Date/Time: Sunday, November 27, 2016 16:24 - CONCLUSION: Subcutaneous emphysema, degenerative spondylosis with slight neural foramina compromise right C3-C4, right C5-6 and right C6-7. Jessa Mc MD Abdomen/Pelvis CT 11/27/16 1610 Signed Impressions: Service Date/Time: Sunday, November 27, 2016 16:31 - CONCLUSION: Scattered diverticuli and findings in the lower chest otherwise unremarkable. Jessa Mc MD Narrative Exam GENERAL: 65-year-old well-nourished, well developed male lying in bed. SKIN: Warm and dry. HEAD: Normocephalic. ENT: No nasal bleeding or discharge. Mucous membranes pink and moist. NECK: Trachea midline. No JVD. CARDIOVASCULAR: Regular rate and rhythm. RESPIRATORY: No accessory muscle use. Lungs clear and diminished to auscultation. Breath sounds equal bilaterally. Left lateral chest tube placed to water seal, no air leak. GASTROINTESTINAL: Abdomen soft, non-tender, nondistended. + BS. MUSCULOSKELETAL: Extremities without cyanosis, or edema. No obvious deformities. Left arm in sling. Left clavicle edema noted. NEUROLOGICAL: Awake and alert. Normal speech. A/P Assessment and Plan INJURIES: LEFT clavicle fx (non-op) LEFT rib fractures LEFT PTX with CT placement LEFT lung contusions Diet: Regular, tolerating Pulmonary: IS, encourage patient use. Pain: Morphine PLAN NURSE, [place] 1-2 tabs, Robaxin, Toradol, IV Ofirmev x24hr. Activity: OOB, PT evaluating. Stood at bedside yesterday with PT. GI: Pepcid Bowel: Анна-colace, Miralax. No BM yet. DVT: SCDs, Plan to start Lovenox when Toradol complete. No PTX on CXR today. Change CT dressing daily. CT placed to water seal. CXR in AM. Plan of care discussed with patient, and RN at bedside. Case management consulted to assist with discharge planning. Disposition will depend on patient progress. Kyaw Cameron [facility] Nov 29, 2016 12:32
[2016-11-29 16:00] VITALS: BP 139/66; PULSE 76; RESP 18; TEMP 98.2; O2SAT 94
--- NOTE | 2016-11-29 18:48 | PD.ORT.PN ---
Subjective Subjective Remarks Patient comfortable. Pain controlled. Objective Vitals Vital Signs Date Time Temp Pulse Resp B/P Pulse Ox O2 Delivery O2 Flow Rate FiO2 11/29/16 16:00 98.2 76 18 139/66 94 11/29/16 14:00 18 11/29/16 12:00 97.5 70 18 121/65 98 11/29/16 10:43 18 11/29/16 10:38 18 11/29/16 08:00 96.8 69 18 141/70 98 11/29/16 06:00 17 11/29/16 03:45 97.0 73 16 133/58 96 11/29/16 00:20 97.0 70 16 135/65 97 11/28/16 22:00 19 11/28/16 19:50 97.5 65 16 110/57 95 I/O 11/28/16 11/28/16 11/28/16 11/29/16 11/29/16 11/29/16 07:00 15:00 23:00 07:00 15:00 23:00 Intake Total 923 ml 1342 ml 480 ml 480 ml 960 ml 244 ml Output Total 410 ml 640 ml 6 ml 1200 ml 0 ml Balance 513 ml 702 ml 474 ml -720 ml 960 ml 244 ml Intake Oral 120 ml 600 ml 480 ml 480 ml 960 ml IV Total 803 ml 742 ml 244 ml Output Urine Total 400 ml 600 ml 1200 ml Chest Tube Drainage Total 10 ml 40 ml 6 ml 0 ml # Voids 2 4 # Bowel Movements 0 0 0 0 Result Diagram: 11/29/16 0505 11/29/16 0505 Imaging Last 24 hours Impressions Chest X-Ray 11/29/16 0600 Signed Impressions: Service Date/Time: Tuesday, November 29, 2016 05:59 - CONCLUSION: No pneumothorax. Left basilar atelectasis. Chandrakant Villa Jr., MD Objective Remarks Left Clavicle skin intact swelling noted tenderness with direct palplation NVI sling in place Assessment & Plan Problem List: (1) Closed left clavicular fracture (2) Rib fractures Plan: Pain management Physical therapy Treatment of pneumothorax Conservative care for multiple rib fractures Conservative care for left clavicle fracture (If clavicle fracture displaces further, then consider ORIF) Monitor Piotr Landon [facility] Nov 29, 2016 18:48
[2016-11-29 20:15] VITALS: BP 136/62; PULSE 78; RESP 17; TEMP 98.1; O2SAT 94
[2016-11-30] VITALS: BP 138/65; PULSE 85; RESP 17; TEMP 98.4; O2SAT 93
[2016-11-30] MEDS: CHLORHEXIDINE GLUCONATE 2 % 1 PACK (2 CLOTHS) TOP SCH (04:00)
[2016-11-30 04:20] VITALS: BP 164/71; PULSE 86; RESP 16; TEMP 99.3; O2SAT 95
[2016-11-30] MEDS: METHOCARBAMOL 500 MG TAB PO SCH ×3 (04:28→23:19)
[2016-11-30] MEDS: KETOROLAC TROMETHAMINE 30 MG/ML (IVP) VIAL IV PUSH SCH ×2 (04:28)
[2016-11-30] MEDS: PCA - TOTAL MG MORPHINE DELIVERED PER SHIFT SCH (06:00)
--- NOTE | 2016-11-30 06:15 | RADRPT ---
EXAM DATE/TIME: 11/30/2016 05:16 [facility] COMPARISON: CHEST SINGLE AP, November 29, 2016, 5:59. INDICATIONS : Evaluate pneumothorax and left side chest tube, pain left chest, short of breath MEDICAL HISTORY : pneumothorax, rib and clavicle fracture SURGICAL HISTORY : chest tube ENCOUNTER: Subsequent ACUITY: 3 days PAIN SCORE: 5/10 LOCATION: Left chest FINDINGS: A single view of the chest demonstrates a tiny 3 mm pneumothorax at the apex on the left side. The le ft chest tube remains in place. There is a mild infiltrate in the left lung base. The right lung is c lear. There is subcutaneous emphysema along the left chest wall.. CONCLUSION: 1. Tiny 3 mm left apical pneumothorax. 2. Mild left lower lung infiltrate. Shahab Baca MD on November 30, 2016 at 6:12 Board Certified Radiologist. This report was verified electronically.
[2016-11-30 07:22] VITALS: BP 143/69; PULSE 75; RESP 18; TEMP 97.5; O2SAT 96
--- NOTE | 2016-11-30 07:58 | PD.ORT.PN ---
Subjective Subjective Remarks Patient comfortable Objective Vitals Vital Signs Date Time Temp Pulse Resp B/P Pulse Ox O2 Delivery O2 Flow Rate FiO2 11/30/16 06:00 18 11/30/16 04:20 99.3 86 16 164/71 95 11/30/16 00:00 98.4 85 17 138/65 93 11/29/16 20:45 18 11/29/16 20:15 98.1 78 17 136/62 94 11/29/16 16:00 98.2 76 18 139/66 94 11/29/16 14:00 18 11/29/16 12:00 97.5 70 18 121/65 98 11/29/16 10:43 18 11/29/16 10:38 18 11/29/16 08:00 96.8 69 18 141/70 98 I/O 11/29/16 11/29/16 11/29/16 11/30/16 11/30/16 11/30/16 07:00 15:00 23:00 07:00 15:00 23:00 Intake Total 480 ml 960 ml 1064 ml 480 ml Output Total 1200 ml 0 ml 45 ml 770 ml Balance -720 ml 960 ml 1019 ml -290 ml Intake Oral 480 ml 960 ml 820 ml 480 ml IV Total 244 ml Output Urine Total 1200 ml 700 ml Chest Tube Drainage Total 0 ml 45 ml 70 ml # Voids 4 4 # Bowel Movements 0 0 0 0 Result Diagram: 11/29/16 0505 11/29/16 0505 Imaging Last 24 hours Impressions Chest X-Ray 11/29/16 0600 Signed Impressions: Service Date/Time: Tuesday, November 29, 2016 05:59 - CONCLUSION: No pneumothorax. Left basilar atelectasis. Chandrakant Villa Jr., MD Objective Remarks Left Clavicle skin intact swelling noted tenderness with direct palplation NVI Assessment & Plan Problem List: (1) Closed left clavicular fracture (2) Rib fractures Plan: Pain management Physical therapy Treatment of pneumothorax Conservative care for multiple rib fractures Conservative care for left clavicle fracture (If clavicle fracture displaces further, then consider ORIF) Monitor Leroy Luna MD Nov 30, 2016 07:58
[2016-11-30] MEDS ORDERED: LACTULOSE SYRUP 20 GM/30 ML CUP PO ONE (08:45)
[2016-11-30] MEDS: BACITRACIN TOP OINT 15 GM TUBE TOP SCH ×2 (09:00→23:20)
[2016-11-30] MEDS: FAMOTIDINE 20 MG TAB PO SCH ×2 (09:48→23:19)
[2016-11-30] MEDS: DOCUSATE SODIUM 50 MG/SENNA 8.6 MG TAB PO SCH ×2 (09:48→23:19)
[2016-11-30] MEDS: POLYETHYLENE GLYCOL 17 GM PKG PO SCH (09:49)
[2016-11-30] MEDS: ACETAMINOPHEN/HYDROcodone 325 MG/5 MG TAB PO PRN ×4 (09:50→23:20)
--- NOTE | 2016-11-30 10:57 | HHI.PR ---
Subjective Subjective Notes Has not been OOB yet. Eating well Objective Vitals/I&O Vital Signs Date Time Temp Pulse Resp B/P Pulse Ox O2 Delivery O2 Flow Rate FiO2 11/30/16 07:22 97.5 75 18 143/69 96 11/28/16 11:51 Nasal Cannula 1.00 11/27/16 16:13 100 Labs Laboratory Tests Test 11/27/16 11/27/16 11/29/16 16:13 18:46 05:05 Bedside Hemoglobin 13.3 G/DL Bedside Hematocrit 39.0 % Prothrombin Time 10.9 SEC Prothromb Time International 1.0 RATIO Ratio Activated Partial 22.5 SEC Thromboplast Time Bedside Sodium 139 MMOL/L Bedside Potassium 7.2 MMOL/L Bedside Chloride 108 MMOL/L Bedside Blood Urea Nitrogen 59 MG/DL Bedside Creatinine 1.3 MG/DL Bedside Glucose 174 MG/DL Blood Type A POSITIVE Antibody Screen NEGATIVE Nasal Screen MRSA (PCR) MRSA NOT DETECTED White Blood Count 6.6 TH/MM3 Red Blood Count 3.86 MIL/MM3 Hemoglobin 12.1 GM/DL Hematocrit 36.1 % Mean Corpuscular Volume 93.5 FL Mean Corpuscular Hemoglobin 31.3 PG Mean Corpuscular Hemoglobin 33.4 % Concent Red Cell Distribution Width 13.3 % Platelet Count 198 TH/MM3 Mean Platelet Volume 9.7 FL Neutrophils (%) (Auto) 53.4 % Lymphocytes (%) (Auto) 29.5 % Monocytes (%) (Auto) 10.6 % Eosinophils (%) (Auto) 6.0 % Basophils (%) (Auto) 0.5 % Neutrophils # (Auto) 3.5 TH/MM3 Lymphocytes # (Auto) 2.0 TH/MM3 Monocytes # (Auto) 0.7 TH/MM3 Eosinophils # (Auto) 0.4 TH/MM3 Basophils # (Auto) 0.0 TH/MM3 CBC Comment DIFF FINAL Differential Comment Sodium Level 140 MEQ/L Potassium Level 4.1 MEQ/L Chloride Level 109 MEQ/L Carbon Dioxide Level 26.8 MEQ/L Anion Gap 4 MEQ/L Blood Urea Nitrogen 18 MG/DL Creatinine 1.02 MG/DL Estimat Glomerular Filtration 73 ML/MIN Rate Random Glucose 93 MG/DL Calcium Level 8.6 MG/DL Total Bilirubin 0.3 MG/DL Aspartate Amino Transf 39 U/L (AST/SGOT) Alanine Aminotransferase 31 U/L (ALT/SGPT) Alkaline Phosphatase 36 U/L Total Protein 5.7 GM/DL Albumin 3.1 GM/DL Radiology Last Impressions Chest X-Ray 11/29/16 0600 Signed Impressions: Service Date/Time: Tuesday, November 29, 2016 05:59 - CONCLUSION: No pneumothorax. Left basilar atelectasis. Chandrakant Villa Jr., MD Pelvis X-Ray 11/27/160 Signed Impressions: Service Date/Time: Sunday, November 27, 2016 15:52 - CONCLUSION: Unremarkable study. Jessa Mc MD Head CT 11/27/161609 Signed Impressions: Service Date/Time: Sunday, November 27, 2016 16:24 - CONCLUSION: Unremarkable study. Jessa Mc MD Chest CT 11/27/161609 Signed Impressions: Service Date/Time: Sunday, November 27, 2016 16:31 - CONCLUSION: Left pneumothorax and multiple fractures and bibasilar contusions and/or infiltrates. Jessa Mc MD Cervical Spine CT 11/27/161609 Signed Impressions: Service Date/Time: Sunday, November 27, 2016 16:24 - CONCLUSION: Subcutaneous emphysema, degenerative spondylosis with slight neural foramina compromise right C3-C4, right C5-6 and right C6-7. Jessa Mc MD Abdomen/Pelvis CT 11/27/161609 Signed Impressions: Service Date/Time: Sunday, November 27, 2016 16:31 - CONCLUSION: Scattered diverticuli and findings in the lower chest otherwise unremarkable. Jessa Mc MD Narrative Exam GENERAL: 65-year-old well-nourished, well developed male lying in bed. SKIN: Warm and dry. HEAD: Normocephalic. ENT: No nasal bleeding or discharge. Mucous membranes pink and moist. NECK: Trachea midline. No JVD. CARDIOVASCULAR: Regular rate and rhythm. RESPIRATORY: No accessory muscle use. Lungs clear and diminished to auscultation. Breath sounds equal bilaterally. Left lateral chest tube in place , no air leak noted. GASTROINTESTINAL: Abdomen soft, non-tender, nondistended. + BS. MUSCULOSKELETAL: Extremities without cyanosis, or edema. No obvious deformities. Left arm in sling. Left clavicle edema noted. NEUROLOGICAL: Awake and alert. Normal speech. A/P Assessment and Plan INJURIES: LEFT clavicle fx (non-op) LEFT rib fractures LEFT PTX with CT placement LEFT lung contusions Diet: Regular, tolerating. Pulmonary: IS, encourage patient use. Pain: IV Morphine, [place] 1-2 tabs, Robaxin. Morphine FIRE BATTALION CHIEF discontinued. DC Toradol. Activity: OOB, PT evaluating. Patient encouraged to get OOB to chair today. GI: Pepcid Bowel: Анна-colace, Miralax. No BM yet. Lactulose x1 today. DVT: SCDs, Lovenox 40 QD CXR today shows tiny apical PTX. CT placed back to -20cm of suction. CXR in AM. Plan of care discussed with patient and RN at bedside. Case management consulted to assist with discharge planning. Disposition will depend on patient progress with PT. The exam, history, and the medical decision-making described in the above note were completed with the assistance of the mid-level provider. I reviewed and agree with the findings presented. I attest that I had a [id number] encounter with the patient on the same day, and personally performed and documented my assessment and findings in the medical record. Kyaw Cameron Nov 30, 2016 10:57 Merrill Lau MD Dec 02, 2016 07:27
--- NOTE | 2016-11-30 11:36 | MP ---
cc: MADELEINE GUILLAUME MD DATE OF SURGERY: 11/27/2016. ALSO KNOWN : Ismael [id number]. PREOPERATIVE DIAGNOSIS: Left pneumothorax, multiple rib fractures, trauma. POSTOPERATIVE DIAGNOSIS: Left pneumothorax, multiple rib fractures, trauma. PROCEDURE PERFORMED: Bedside emergent left 36-Lithuanian chest tube placement. SURGEON: Dr. Madeleine Guillaume. MACHINE TOOL REBUILDER: None. ANESTHESIA: Local anesthetic and IV pain medicine given. COMPLICATIONS: None. WOUND CLASSIFICATION: Clean. FINDINGS: A small ferris of air on tube insertion. SPECIMENS: None. INDICATIONS FOR THE PROCEDURE: The patient is a 66-year-old male status post fall with multiple rib fractures, pneumothorax and in need of an emergency chest tube. DESCRIPTION OF THE PROCEDURE IN DETAIL: The patient was prepped and draped in THE usual sterile fashion at the bedside. He was given IV and local anesthetic. The patient underwent a 32-Lithuanian chest tube placement. The level of the fourth intercostal space was identified at the level of the nipple at the anterior axillary line. The incision was made with a #15 blade. Further dissection was done with a hemostat. Local anesthetic was injected. A 32-Lithuanian chest tube was obtain and put in the intrathoracic space. A rash of air came. The chest tube was connected to the atrium. The chest tube was sutured in with #0silk sutures. Sterile dressings were placed. An occlusive dressing was placed. Good ____ noted on chest tube atrium. The chest was placed to suction. The patient tolerated the procedure well. There were no complications. MD CHELSEY Riojas/GRACE /9:47 PM /11:31 AM
[2016-11-30 12:01] VITALS: BP 159/72; PULSE 73; RESP 16; TEMP 96.6; O2SAT 96
[2016-11-30] MEDS: ENOXAPARIN SODIUM 30 MG/0.3 ML SYRINGE SQ SCH (14:16)
[2016-11-30 15:15] VITALS: BP 128/85; PULSE 74; RESP 18; TEMP 97.8; O2SAT 95
[2016-11-30 19:00] VITALS: BP 178/75; PULSE 80; RESP 17; TEMP 98.1; O2SAT 95
[2016-12-01] VITALS (8 sets, daily range): BP systolic 140–170; BP diastolic 66–82; PULSE 73–95; RESP 15–17; TEMP 95.9–98.1; O2SAT 94–98
[2016-12-01] MEDS: ENOXAPARIN SODIUM 30 MG/0.3 ML SYRINGE SQ SCH ×2 (01:33→12:46)
[2016-12-01] MEDS: ACETAMINOPHEN/HYDROcodone 325 MG/5 MG TAB PO PRN ×4 (02:58→16:18)
[2016-12-01] MEDS: CHLORHEXIDINE GLUCONATE 2 % 1 PACK (2 CLOTHS) TOP SCH (04:46)
[2016-12-01] MEDS: METHOCARBAMOL 500 MG TAB PO SCH ×3 (06:35→22:11)
--- NOTE | 2016-12-01 06:35 | RADRPT ---
EXAM DATE/TIME: 12/01/2016 05:30 [facility] COMPARISON: CHEST SINGLE AP, November 30, 2016, 5:16. INDICATIONS : Evaluate left side pneumothorax, pain left chest and short of breath MEDICAL HISTORY : Venous insufficiency. pneumothorax SURGICAL HISTORY : chest tube ENCOUNTER: Subsequent ACUITY: 4 - 6 days PAIN SCORE: 8/10 LOCATION: Left chest FINDINGS: Left chest tube in place. No pneumothorax. Mild left lower lung atelectasis. The right lung is clear. Heart size is stable. No definite pleural effusions. No significant changes. CONCLUSION: No significant interval change. Shahab Baca MD on December 01, 2016 at 6:32 Board Certified Radiologist. This report was verified electronically.
[2016-12-01] MEDS: DOCUSATE SODIUM 50 MG/SENNA 8.6 MG TAB PO SCH ×2 (08:02→22:11)
[2016-12-01] MEDS: FAMOTIDINE 20 MG TAB PO SCH ×2 (08:03→22:11)
[2016-12-01] MEDS: POLYETHYLENE GLYCOL 17 GM PKG PO SCH (08:03)
--- NOTE | 2016-12-01 08:10 | PD.ORT.PN ---
Subjective Subjective Remarks Patient comfortable Objective Vitals Vital Signs Date Time Temp Pulse Resp B/P Pulse Ox O2 Delivery O2 Flow Rate FiO2 12/01/16 04:00 97.9 76 17 170/78 97 12/01/16 00:00 97.0 82 16 166/79 97 11/30/16 19:00 98.1 80 17 178/75 95 11/30/16 15:15 97.8 74 18 128/85 95 11/30/16 12:01 96.6 73 16 159/72 96 I/O 11/30/16 11/30/16 11/30/16 12/01/16 12/01/16 12/01/16 07:00 15:00 23:00 07:00 15:00 23:00 Intake Total 480 ml 840 ml 480 ml 480 ml Output Total 770 ml 90 ml 500 ml 420 ml Balance -290 ml 750 ml -20 ml 60 ml Intake Oral 480 ml 840 ml 480 ml 480 ml Output Urine Total 700 ml 500 ml 420 ml Chest Tube Drainage Total 70 ml 90 ml # Voids 4 # Bowel Movements 0 0 0 0 Result Diagram: 11/29/16 0505 11/29/16 0505 Imaging Last 24 hours Impressions Chest X-Ray 11/29/16 0600 Signed Impressions: Service Date/Time: Tuesday, November 29, 2016 05:59 - CONCLUSION: No pneumothorax. Left basilar atelectasis. Chandrakant Villa Jr., MD Objective Remarks Left Clavicle skin intact swelling noted tenderness with direct palplation NVI Assessment & Plan Problem List: (1) Closed left clavicular fracture (2) Rib fractures Plan: Pain management Physical therapy Treatment of pneumothorax -chest tube still in place Conservative care for multiple rib fractures Conservative care for left clavicle fracture (If clavicle fracture displaces further, then consider ORIF) Monitor Leroy Luna MD Dec 01, 2016 08:10
[2016-12-01] MEDS: BACITRACIN TOP OINT 15 GM TUBE TOP SCH ×2 (09:00→21:00)
[2016-12-01] MEDS ORDERED: MAGNESIUM CITRATE SOLN 300 ML BTL PO ONE (09:00)
[2016-12-01] MEDS: MORPHINE SULFATE 4 MG/ML INJ IV PRN (10:10)
[2016-12-01] MEDS ORDERED: fentaNYL 25 MCG/HR PATCH T-DERMAL SCH (12:00)
--- NOTE | 2016-12-01 15:00 | HHI.PR ---
Subjective Subjective Notes OOB to chair yesterday for a short period Still complaining of rib pain Objective Vitals/I&O Vital Signs Date Time Temp Pulse Resp B/P Pulse Ox O2 Delivery O2 Flow Rate FiO2 12/01/16 12:30 95 12/01/16 12:00 95.9 16 143/76 98 11/28/16 11:51 Nasal Cannula 1.00 11/27/16 16:13 100 Labs Laboratory Tests Test 11/27/16 11/27/16 11/29/16 16:13 18:46 05:05 Bedside Hemoglobin 13.3 G/DL Bedside Hematocrit 39.0 % Prothrombin Time 10.9 SEC Prothromb Time International 1.0 RATIO Ratio Activated Partial 22.5 SEC Thromboplast Time Bedside Sodium 139 MMOL/L Bedside Potassium 7.2 MMOL/L Bedside Chloride 108 MMOL/L Bedside Blood Urea Nitrogen 59 MG/DL Bedside Creatinine 1.3 MG/DL Bedside Glucose 174 MG/DL Blood Type A POSITIVE Antibody Screen NEGATIVE Nasal Screen MRSA (PCR) MRSA NOT DETECTED White Blood Count 6.6 TH/MM3 Red Blood Count 3.86 MIL/MM3 Hemoglobin 12.1 GM/DL Hematocrit 36.1 % Mean Corpuscular Volume 93.5 FL Mean Corpuscular Hemoglobin 31.3 PG Mean Corpuscular Hemoglobin 33.4 % Concent Red Cell Distribution Width 13.3 % Platelet Count 198 TH/MM3 Mean Platelet Volume 9.7 FL Neutrophils (%) (Auto) 53.4 % Lymphocytes (%) (Auto) 29.5 % Monocytes (%) (Auto) 10.6 % Eosinophils (%) (Auto) 6.0 % Basophils (%) (Auto) 0.5 % Neutrophils # (Auto) 3.5 TH/MM3 Lymphocytes # (Auto) 2.0 TH/MM3 Monocytes # (Auto) 0.7 TH/MM3 Eosinophils # (Auto) 0.4 TH/MM3 Basophils # (Auto) 0.0 TH/MM3 CBC Comment DIFF FINAL Differential Comment Sodium Level 140 MEQ/L Potassium Level 4.1 MEQ/L Chloride Level 109 MEQ/L Carbon Dioxide Level 26.8 MEQ/L Anion Gap 4 MEQ/L Blood Urea Nitrogen 18 MG/DL Creatinine 1.02 MG/DL Estimat Glomerular Filtration 73 ML/MIN Rate Random Glucose 93 MG/DL Calcium Level 8.6 MG/DL Total Bilirubin 0.3 MG/DL Aspartate Amino Transf 39 U/L (AST/SGOT) Alanine Aminotransferase 31 U/L (ALT/SGPT) Alkaline Phosphatase 36 U/L Total Protein 5.7 GM/DL Albumin 3.1 GM/DL Radiology Last Impressions Chest X-Ray 11/29/16 0600 Signed Impressions: Service Date/Time: Tuesday, November 29, 2016 05:59 - CONCLUSION: No pneumothorax. Left basilar atelectasis. Chandrakant Villa Jr., MD Pelvis X-Ray 11/27/161609 Signed Impressions: Service Date/Time: Sunday, November 27, 2016 15:52 - CONCLUSION: Unremarkable study. Jessa Mc MD Head CT 11/27/161609 Signed Impressions: Service Date/Time: Sunday, November 27, 2016 16:24 - CONCLUSION: Unremarkable study. Jessa Mc MD Chest CT 11/27/161609 Signed Impressions: Service Date/Time: Sunday, November 27, 2016 16:31 - CONCLUSION: Left pneumothorax and multiple fractures and bibasilar contusions and/or infiltrates. Jessa Mc MD Cervical Spine CT 11/27/161609 Signed Impressions: Service Date/Time: Sunday, November 27, 2016 16:24 - CONCLUSION: Subcutaneous emphysema, degenerative spondylosis with slight neural foramina compromise right C3-C4, right C5-6 and right C6-7. Jessa Mc MD Abdomen/Pelvis CT 11/27/161609 Signed Impressions: Service Date/Time: Sunday, November 27, 2016 16:31 - CONCLUSION: Scattered diverticuli and findings in the lower chest otherwise unremarkable. Jessa Mc MD Narrative Exam GENERAL: 65-year-old well-nourished, well developed male lying in bed. SKIN: Warm and dry. HEAD: Normocephalic. ENT: No nasal bleeding or discharge. Mucous membranes pink and moist. NECK: Trachea midline. No JVD. CARDIOVASCULAR: Regular rate and rhythm. RESPIRATORY: No accessory muscle use. Lungs clear and diminished to auscultation. Breath sounds equal bilaterally. Left lateral chest tube in place , no air leak noted. GASTROINTESTINAL: Abdomen soft, non-tender, nondistended. + BS. MUSCULOSKELETAL: Extremities without cyanosis, or edema. No obvious deformities. Left arm in sling. Left clavicle edema noted. NEUROLOGICAL: Awake and alert. Normal speech. A/P Assessment and Plan INJURIES: LEFT clavicle fx (non-op) LEFT rib fractures LEFT PTX with CT placement LEFT lung contusions Diet: Regular, tolerating. Pulmonary: IS, encourage patient use. Pain: IV Morphine, [place] 1-2 tabs, Robaxin. Added fentanyl patch for better pain control Activity: OOB, PT evaluating. Patient encouraged to get OOB to chair today. GI: Pepcid Bowel: Анна-colace, Miralax. No BM yet. Mag citrate 1 today. DVT: SCDs, Lovenox 40 QD CXR today negative for pneumothorax. Chest tube placed to water seal. Chest x- ray ordered for 1400 to evaluate chest tube removal. Plan of care discussed with patient and family at bedside. Case management consulted to assist with discharge planning. Disposition will depend on patient progress with PT. The exam, history, and the medical decision-making described in the above note were completed with the assistance of the mid-level provider. I reviewed and agree with the findings presented. I attest that I had a [id number] encounter with the patient on the same day, and personally performed and documented my assessment and findings in the medical record. Kyaw Cameron Dec 01, 2016 15:00 Merrill Lau MD Dec 02, 2016 07:41
--- NOTE | 2016-12-01 15:05 | RADRPT ---
EXAM DATE/TIME: 12/01/2016 14:22 [facility] COMPARISON: CHEST SINGLE AP, December 01, 2016, 5:30. INDICATIONS : Pneumothorax. MEDICAL HISTORY : None. SURGICAL HISTORY : None. ENCOUNTER: Subsequent ACUITY: 4 - 6 days PAIN SCORE: 6/10 LOCATION: Bilateral chest FINDINGS: A single view of the chest demonstrates the lungs to be symmetrically aerated with persistent left ba silar atelectatic changes. Left-sided thoracostomy tube is unchanged in position without pneumothorax . Accounting for the low lung findings, the heart size is upper limits of normal. Right lung is clear . Left-sided rib fractures and left clavicular fracture are identified. Deep tissue emphysematous olya nges are seen about the left hemithorax. CONCLUSION: 1. Stable left basilar atelectatic changes. Lungs are otherwise clear. 2. Stable position of left-sided thoracostomy tube without pneumothorax. 3. Left rib fractures and left clavicular fracture. Israel Fowler MD on December 01, 2016 at 14:58 Board Certified Radiologist. This report was verified electronically.
--- NOTE | 2016-12-01 16:42 | MB ---
cc: NOEMI ALICEA M.D. DATE OF CONSULTATION 11/28/16 REASON FOR CONSULTATION Requested to evaluate left clavicle fracture. HISTORY OF PRESENT ILLNESS Faustino Duenas is a 65-year-old male who was admitted to [facility] as Ismael Chance following a trauma alert for having had a fall from 8-10 feet. It was unclear if he had loss of consciousness. He was brought into [facility] and taken through a trauma workup. He was found to have a pneumothorax with four rib fractures on the left and a left clavicle fracture best seen on CT scan. He was admitted to Dr. Vince Guillaume with consultation placed to the undersigned. PAST MEDICAL HISTORY 1. Cardiac disease. 2. Previous bilateral cataract surgery. 3. He has a known aortic valve problem 4. Prior hernia repair. 5. Bilateral knee surgery. SOCIAL HISTORY The patient does report occasional tobacco use and alcohol use. He is . MEDICATIONS Noted, MAR reviewed. ALLERGIES KEFLEX PENICILLIN PHYSICAL EXAMINATION The patient is alert, oriented, appropriate. Swelling and tenderness about the left clavicle. Any movement of the left shoulder causes discomfort in the ribs. Chest tube in place, bandage in place. No chest wall deformity. Elbow and wrist nontender. Distal pulses are 2+. Distal motor sensory neurologic examination intact. IMAGING STUDIES CT scan is reviewed which appears to show rib fractures involving the fourth, fifth, sixth and seventh ribs with a comminuted left clavicle shaft fracture with 100% inferior displacement. ASSESSMENT Clavicle fracture with four rib fractures on left side. MEDICAL DECISION MAKING His condition was discussed, options of treatment were discussed. The biggest issue is the pneumothorax for which he has a chest tube. He will be hospitalized for several days regarding this. The current alignment of the clavicle is 100% inferior displacement. Surgical intervention for an open reduction internal fixation is a consideration. However, nonoperative treatment should be successful with a sling. Proceed with sling treatment for now and we will continue to monitor as we go along. All of his questions were answered. MD BALBIR Finley/ /7:45 PM /4:33 PM
[2016-12-02] MEDS: ENOXAPARIN SODIUM 30 MG/0.3 ML SYRINGE SQ SCH ×3 (01:08→23:54)
[2016-12-02] MEDS: CHLORHEXIDINE GLUCONATE 2 % 1 PACK (2 CLOTHS) TOP SCH ×2 (04:00→20:58)
[2016-12-02] MEDS: METHOCARBAMOL 500 MG TAB PO SCH ×3 (05:27→20:57)
[2016-12-02] MEDS: MORPHINE SULFATE 4 MG/ML INJ IV PRN (07:14)
[2016-12-02] MEDS: FAMOTIDINE 20 MG TAB PO SCH ×2 (07:19→19:48)
[2016-12-02] MEDS: ACETAMINOPHEN/HYDROcodone 325 MG/5 MG TAB PO PRN ×5 (07:19→23:53)
[2016-12-02] MEDS: DOCUSATE SODIUM 50 MG/SENNA 8.6 MG TAB PO SCH ×2 (07:19→19:48)
[2016-12-02] MEDS: POLYETHYLENE GLYCOL 17 GM PKG PO SCH (07:19)
--- NOTE | 2016-12-02 07:23 | RADRPT ---
EXAM DATE/TIME: 12/02/2016 06:32 [facility] COMPARISON: CHEST SINGLE AP, December 01, 2016, 14:22. INDICATIONS : Post chest tube removal. MEDICAL HISTORY : Penumothorax. SURGICAL HISTORY : Chest tube, left. ENCOUNTER: Subsequent ACUITY: 3 days PAIN SCORE: 4/10 LOCATION: Left chest FINDINGS: Portable upright expiratory view of the chest and demonstrates a normal-sized cardiac silhouette. The left chest tube is been removed and no pneumothorax is visualized. There is persistent mild opacity the left lung base. Mild left chest wall and supraclavicular region soft tissue air remains present. CONCLUSION: 1. Left chest tube has been removed and no pneumothorax is visualized. 2. Persistent mild opacity at the left lung base could represent atelectasis or consolidation. Ismael Hernandez MD on December 02, 2016 at 7:20 Board Certified Radiologist. This report was verified electronically.
[2016-12-02 08:00] VITALS: BP 158/96; PULSE 86; RESP 16; TEMP 96.2; O2SAT 91
[2016-12-02] MEDS: BACITRACIN TOP OINT 15 GM TUBE TOP SCH ×2 (09:00→19:49)
--- NOTE | 2016-12-02 11:20 | HHI.PR ---
Subjective Subjective Notes Became confused at night and forgot he was in the hospital. Reports he uses left arm to get out of bed and had intense pain Pain controlled now Ambulated halls today Objective Vitals/I&O Vital Signs Date Time Temp Pulse Resp B/P Pulse Ox O2 Delivery O2 Flow Rate FiO2 12/02/16 08:45 16 12/02/16 08:00 96.2 86 158/96 91 11/28/16 11:51 Nasal Cannula 1.00 Labs Laboratory Tests Test 11/29/16 05:05 White Blood Count 6.6 TH/MM3 Red Blood Count 3.86 MIL/MM3 Hemoglobin 12.1 GM/DL Hematocrit 36.1 % Mean Corpuscular Volume 93.5 FL Mean Corpuscular Hemoglobin 31.3 PG Mean Corpuscular Hemoglobin 33.4 % Concent Red Cell Distribution Width 13.3 % Platelet Count 198 TH/MM3 Mean Platelet Volume 9.7 FL Neutrophils (%) (Auto) 53.4 % Lymphocytes (%) (Auto) 29.5 % Monocytes (%) (Auto) 10.6 % Eosinophils (%) (Auto) 6.0 % Basophils (%) (Auto) 0.5 % Neutrophils # (Auto) 3.5 TH/MM3 Lymphocytes # (Auto) 2.0 TH/MM3 Monocytes # (Auto) 0.7 TH/MM3 Eosinophils # (Auto) 0.4 TH/MM3 Basophils # (Auto) 0.0 TH/MM3 CBC Comment DIFF FINAL Differential Comment Sodium Level 140 MEQ/L Potassium Level 4.1 MEQ/L Chloride Level 109 MEQ/L Carbon Dioxide Level 26.8 MEQ/L Anion Gap 4 MEQ/L Blood Urea Nitrogen 18 MG/DL Creatinine 1.02 MG/DL Estimat Glomerular Filtration 73 ML/MIN Rate Random Glucose 93 MG/DL Calcium Level 8.6 MG/DL Total Bilirubin 0.3 MG/DL Aspartate Amino Transf 39 U/L (AST/SGOT) Alanine Aminotransferase 31 U/L (ALT/SGPT) Alkaline Phosphatase 36 U/L Total Protein 5.7 GM/DL Albumin 3.1 GM/DL Radiology Last Impressions Chest X-Ray 11/29/16 0600 Signed Impressions: Service Date/Time: Tuesday, November 29, 2016 05:59 - CONCLUSION: No pneumothorax. Left basilar atelectasis. Chandrakant Villa Jr., MD Pelvis X-Ray 11/27/16 1610 Signed Impressions: Service Date/Time: Sunday, November 27, 2016 15:52 - CONCLUSION: Unremarkable study. Jessa Mc MD Head CT 11/27/161609 Signed Impressions: Service Date/Time: Sunday, November 27, 2016 16:24 - CONCLUSION: Unremarkable study. Jessa Mc MD Chest CT 11/27/161609 Signed Impressions: Service Date/Time: Sunday, November 27, 2016 16:31 - CONCLUSION: Left pneumothorax and multiple fractures and bibasilar contusions and/or infiltrates. Jessa Mc MD Cervical Spine CT 11/27/161609 Signed Impressions: Service Date/Time: Sunday, November 27, 2016 16:24 - CONCLUSION: Subcutaneous emphysema, degenerative spondylosis with slight neural foramina compromise right C3-C4, right C5-6 and right C6-7. Jessa Mc MD Abdomen/Pelvis CT 11/27/161609 Signed Impressions: Service Date/Time: Sunday, November 27, 2016 16:31 - CONCLUSION: Scattered diverticuli and findings in the lower chest otherwise unremarkable. Jessa Mc MD Narrative Exam GENERAL: 65-year-old well-nourished, well developed male lying in bed. SKIN: Warm and dry. HEAD: Normocephalic. ENT: No nasal bleeding or discharge. Mucous membranes pink and moist. NECK: Trachea midline. No JVD. CARDIOVASCULAR: Regular rate and rhythm. RESPIRATORY: No accessory muscle use. Lungs clear and diminished to auscultation. Breath sounds equal bilaterally. GASTROINTESTINAL: Abdomen soft, non-tender, nondistended. + BS. MUSCULOSKELETAL: Extremities without cyanosis, or edema. No obvious deformities. Left arm in sling. Left clavicle edema noted. NEUROLOGICAL: Awake and alert. Normal speech. A/P Assessment and Plan [place]: Fall from 8-10 feet through a tin roof. Unknown LOC. Decreased breath sounds noted in field. INJURIES: LEFT clavicle fx (non-op) LEFT rib fractures LEFT PTX with CT placement LEFT lung contusions 11/[address] placed 12/01: LEFT CT removed Diet: Regular, tolerating. Pulmonary: IS, encourage patient use. Pain: IV Morphine, [place] 1-2 tabs, Robaxin. Fentanyl patch. Pain controlled Activity: OOB, PT evaluating. Ambulated halls today. GI: Pepcid Bowel: Анна-colace, Miralax. LBM 12/02 DVT: SCDs, Lovenox 40 QD S/P CT removal. CXR today negative for pneumothorax. Plan of care discussed with patient and family at bedside. Case management consulted to assist with discharge planning. Plan to discharge home with home health care in a.m. Attending Statement patient seen at bedside confusion overnight better c/o of arm pain will discuss with ortho to re-eval clavicle Attestation The exam, history, and the medical decision-making described in the above note were completed with the assistance of the mid-level provider. I reviewed and agree with the findings presented. I attest that I had a [id number] encounter with the patient on the same day, and personally performed and documented my assessment and findings in the medical record. Kyaw Cameron Dec 02, 2016 11:20 Vince Guillaume MD December 15, 2016 13:05
[2016-12-02 11:53] VITALS: PULSE 86
[2016-12-02 12:00] VITALS: BP 153/81; PULSE 70; RESP 16; TEMP 97.3; O2SAT 93
--- NOTE | 2016-12-02 13:21 | HHI.FF ---
Face to Face Verification Diagnosis: (1) Pneumothorax, left (2) Fall (3) Rib fractures (4) Closed left clavicular fracture Physical Therapy Order: Evaluate and Treat, Improve ambulation, Strength and gait training Home Health Nursing Order: Nursing assessment with vital signs I have seen patient Faustino Couch on 12/02/16. My clinical findings support the need for the requested home health care services because: Limited ability to care for self High risk of falls I certify that my clinical findings support that this patient is homebound because: Unsteady gait/balance Kyaw Cameron MANAGER DECISION SUPPORT Dec 02, 2016 13:21
[2016-12-02] MEDS ORDERED: QUADMIS (14:27)
[2016-12-02 16:10] VITALS: BP 146/70; PULSE 70; RESP 16; TEMP 97.6; O2SAT 95
[2016-12-02 20:00] VITALS: BP 158/80; PULSE 68; RESP 17; TEMP 97.9; O2SAT 96
[2016-12-03 00:20] VITALS: BP 141/85; PULSE 75; RESP 17; TEMP 96.7; O2SAT 97
[2016-12-03] MEDS: METHOCARBAMOL 500 MG TAB PO SCH (04:15)
[2016-12-03] MEDS: ACETAMINOPHEN/HYDROcodone 325 MG/5 MG TAB PO PRN ×3 (04:16→13:01)
[2016-12-03 08:00] VITALS: BP 160/77; PULSE 68; RESP 19; TEMP 97.5; O2SAT 94
[2016-12-03] MEDS: POLYETHYLENE GLYCOL 17 GM PKG PO SCH (08:32)
[2016-12-03] MEDS: FAMOTIDINE 20 MG TAB PO SCH (08:32)
[2016-12-03] MEDS: DOCUSATE SODIUM 50 MG/SENNA 8.6 MG TAB PO SCH (08:32)
[2016-12-03] MEDS: BACITRACIN TOP OINT 15 GM TUBE TOP SCH (09:00)
[2016-12-03 12:00] VITALS: BP 140/72; PULSE 68; RESP 19; TEMP 98; O2SAT 94
[2016-12-03] MEDS ORDERED: FENT25T T-DERMAL (12:01)
[2016-12-03] MEDS ORDERED: HYDR-3516 PO (12:01)
[2016-12-03] MEDS ORDERED: METH500T3 PO (12:02)
[2016-12-03] MEDS: ENOXAPARIN SODIUM 30 MG/0.3 ML SYRINGE SQ SCH (13:01)
--- NOTE | 2016-12-03 13:55 | HHI.DS ---
Discharge Summary Admission Date Nov 27, 2016 at 16:20 Discharge Date: Dec 03, 2016 Admitting Diagnosis L ptx, fall Brief History S/P Trauma: Fall CBC/BMP: 11/29/16 0505 11/29/16 0505 Imaging Last Impressions Chest X-Ray 12/02/16 0600 Signed Impressions: Service Date/Time: Friday, December 02, 2016 06:32 - CONCLUSION: 1. Left chest tube has been removed and no pneumothorax is visualized. 2. Persistent mild opacity at the left lung base could represent atelectasis or consolidation. Ismael Hernandez MD Pelvis X-Ray 11/27/16 161 Signed Impressions: Service Date/Time: Sunday, November 27, 2016 15:52 - CONCLUSION: Unremarkable study. Jessa Mc MD Head CT 11/27/161609 Signed Impressions: Service Date/Time: Sunday, November 27, 2016 16:24 - CONCLUSION: Unremarkable study. Jessa Mc MD Chest CT 11/27/161609 Signed Impressions: Service Date/Time: Sunday, November 27, 2016 16:31 - CONCLUSION: Left pneumothorax and multiple fractures and bibasilar contusions and/or infiltrates. Jessa Mc MD Cervical Spine CT 11/27/161609 Signed Impressions: Service Date/Time: Sunday, November 27, 2016 16:24 - CONCLUSION: Subcutaneous emphysema, degenerative spondylosis with slight neural foramina compromise right C3-C4, right C5-6 and right C6-7. Jessa Mc MD Abdomen/Pelvis CT 11/27/161609 Signed Impressions: Service Date/Time: Sunday, November 27, 2016 16:31 - CONCLUSION: Scattered diverticuli and findings in the lower chest otherwise unremarkable. Jessa Mc MD PE at Discharge GENERAL: 65-year-old well-nourished, well developed male lying in bed. SKIN: Warm and dry. HEAD: Normocephalic. ENT: No nasal bleeding or discharge. Mucous membranes pink and moist. NECK: Trachea midline. No JVD. CARDIOVASCULAR: Regular rate and rhythm. RESPIRATORY: No accessory muscle use. Lungs clear and diminished to auscultation. Breath sounds equal bilaterally. GASTROINTESTINAL: Abdomen soft, non-tender, nondistended. + BS. MUSCULOSKELETAL: Extremities without cyanosis, or edema. No obvious deformities. Left arm in sling. Left clavicle edema noted. NEUROLOGICAL: Awake and alert. Normal speech. Hospital Course [place]: Fall from 8-10 feet through a tin roof. Unknown LOC. Decreased breath sounds noted in field. INJURIES: LEFT clavicle fx (non-op) LEFT rib fractures LEFT PTX with CT placement LEFT lung contusions 11/[address] placed 12/01: LEFT CT removed Diet: Regular, tolerating. Pulmonary: IS, encourage patient use. Pain: IV Morphine, [place] 1-2 tabs, Robaxin. Fentanyl patch. Pain controlled Activity: OOB, PT evaluating. Ambulated halls today. GI: Pepcid Bowel: Анна-colace, Miralax. LBM 12/02 DVT: SCDs, Lovenox 40 QD Patient with increased left clavicle pain since using arm to pull himself out of bed yesterday. RN in place called to Dr. Luna and recommended patient still follow-up as outpatient. Plan of care discussed with patient and at bedside. Follow-up with orthopedics as outpatient. Follow-up with PCP in 2 weeks. Case management consulted to assist with discharge planning. Arranging home health care. Patient is clear from trauma surgery standpoint to safely discharge home with home health care. Pt Condition on Discharge: Stable Discharge Disposition: Disch w/ Home Health Serv Discharge Instructions DIET: Follow Instructions for: As Tolerated, No Restrictions Activities you can perform: Non Weight Bearing Other Activity Instructions: Non weight bearing Left arm- wear sling Kyaw Cameron Dec 03, 2016 13:54
== END 2016-12-03 14:32 | disposition home health service (06) | DRG 183 ==
LOC: NEPI 15:56 → EDBD 16:20 → NEDA 16:20 → N03A 18:48 → N06B 11-28 16:04
PROVIDERS: ADMIT Surgery; ATTEND Surgery
PROC: 0W9B30Z Drainage of Left Pleural Cavity with Drainage Device, Percutaneous Approach (ICD-10-PCS; principal; 2016-11-27)
DX: S22.42XA Multiple fractures of ribs, left side, initial encounter for closed fracture (principal); S27.2XXA Traumatic hemopneumothorax, initial encounter; T79.7XXA Traumatic subcutaneous emphysema, initial encounter; S27.321A Contusion of lung, unilateral, initial encounter; S42.002A Fracture of unspecified part of left clavicle, initial encounter for closed fracture; R06.02 Shortness of breath; R40.2412 Glasgow coma scale score 13-15, at arrival to emergency department; S80.212A Abrasion, left knee, initial encounter; W13.2XXA Fall from, out of or through roof, initial encounter; Y93.89 Activity, other specified; Y92.008 Other place in unspecified non-institutional (private) residence as the place of occurrence of the external cause; S00.83XA Contusion of other part of head, initial encounter
CPT/HCPCS: 32551; 70450; 71010; 71260; 72125; 72170; 74177; 80048; 80053; 82435; 82565; 82947; 84132; 84295; 84520; 85025; 85610; 85730; 86850; 86900; 86901; 87641; 94150; 96374; 99152; 99153; 99291; C9113; G0390; J0131; J1650; J1885; J2270; J2405; J3010; J7030; Q9967